=== PATIENT | female | born 1955 | race Two or more races ===

== ENCOUNTER 2019-08-01 11:44 | Inpatient (IN) | payer MEDICARE, MEDICAID ==
[~2019-08-01] VITALS: Ht 175.3 cm; Wt 60.8 kg
[~2019-08-01 11:44] MED LIST: CALC-906 PO
[2019-08-01 12:39] LABS: BASOPHILS % 1.2 % (0.0-2.0); EOSINOPHILS % 3.1 % (0.0-5.0); HEMATOCRIT. 21.8 % (36.0-48.0); HEMOGLOBIN. 7.7 g/dL (12.0-16.0); MEAN CORPUSCULAR HEMOGLOBIN 31.6 pg (28.0-32.0); MEAN CORPUSCULAR VOLUME 89.6 fL (81.0-99.0); MEAN PLATELET VOLUME 9.6 fl (7.4-10.4); MONOCYTES % 10.5 % (2.0-8.0); NEUTROPHILS % 68.2 % (40.0-76.0); PLATELET 232 x1000/uL (130-400); RED BLOOD CELL COUNT 2.44 mill/uL (4.2-5.4); RED CELL DISTRIBUTION WIDTH 18.6 % (11.6-14.6)
[2019-08-01 12:47] LABS: CHLORIDE 96 mEq/L (98-107)
[2019-08-01 12:48] LABS: PROTHROMBIN TIME 10.9 sec (9.6-11.0)
[2019-08-01 12:58] LABS: CLARITY URINE CLEAR (CLEAR); COLOR URINE YELLOW (YELLOW); KETONES URINE NEGATIVE (NEGATIVE); LEUKOCYTE ESTERASE URINE 1+ (NEGATIVE); NITRITE URINE NEGATIVE (NEGATIVE); OCCULT BLOOD URINE NEGATIVE (NEGATIVE); PH URINE 5.5 (4.5-8.0); PROTEIN URINE TRACE (NEGATIVE); SPECIFIC GRAVITY URINE 1.012 (1.005-1.030); UROBILINOGEN URINE 0.2 E.U./dL (0.2-1.0)
[2019-08-01] MEDS ORDERED: VANCOMYCIN 1 G PREMIX 200 ML IV SCH (14:45)
[2019-08-01 17:30] VITALS: BP 112/58
[2019-08-01] MEDS ORDERED: HYDROCODONE/ACETAMINOPHEN 10/325MG TABLET PO PRN (17:30)
[2019-08-01] MEDS ORDERED: GUAIFENESIN 200MG/10ML SUGAR FREE UDC PO PRN (17:30)
[2019-08-01] MEDS ORDERED: ENOXAPARIN 40MG/0.4ML SYR SUBCUT SCH (17:30)
[2019-08-01] MEDS ORDERED: ACETAMINOPHEN 325MG TABLET PO PRN (17:30)
[2019-08-01] MEDS ORDERED: IPRATROPIUM/ALBUTEROL 0.5-3(2.5)MG/3ML NEB HHN PRN (17:30)
[2019-08-01] MEDS ORDERED: MAGNESIUM/ALUMINUM HYDROXIDE/SIMETHICONE 30ML UDC PO PRN (17:30)
[2019-08-01] MEDS ORDERED: CLONIDINE 0.1MG TABLET PO PRN (17:30)
[2019-08-01] MEDS ORDERED: HYDRALAZINE 20MG/ML VIAL IV PRN (17:30)
[2019-08-01] MEDS ORDERED: LORAZEPAM 2MG/ML CPJ IV PRN (17:30)
[2019-08-01] MEDS ORDERED: ONDANSETRON HCL 4MG/2ML INJ IV PRN (17:30)
[2019-08-01] MEDS ORDERED: PIPERACILLIN/TAZ 3.375G PREMIX 50 ML IV SCH (17:30)
[2019-08-01] MEDS ORDERED: PIPERACILLIN/TAZOBACTAM 2.25 G in DEXTROSE 5% WATER 50 ML IV SCH (18:00)
[2019-08-01 20:00] VITALS: BP 101/46
[2019-08-01] MEDS: PIPERACILLIN/TAZOBACTAM 2.25 G in DEXTROSE 5% WATER 50 ML IV SCH (20:27)
[2019-08-01] MEDS: MORPHINE SULFATE 2 MG/ML CPJ (NOT FOR IM USE) IV PRN (21:05)
[2019-08-01] MEDS: SODIUM CHLORIDE 0.9% INJ 3ML FLUSH IVF SCH (22:00)
[2019-08-01] MEDS ORDERED: MIRT7.5T11 MT (23:17)
[2019-08-01] MEDS ORDERED: FOLI1TAB63 MT (23:17)
[2019-08-01] MEDS ORDERED: ATROV3 ORI (23:17)
[2019-08-01] MEDS ORDERED: ONDA4TAB50 MT (23:17)
[2019-08-01] MEDS ORDERED: METO25TA6 PO (23:17)
[2019-08-01] MEDS ORDERED: FOLI-43 MT (23:17)
[2019-08-01] MEDS ORDERED: MIDO10TA PO (23:17)
[2019-08-01] MEDS ORDERED: TRAM50TA3 MT (23:17)
[2019-08-01] MEDS ORDERED: CEPH-569 MT (23:17)
[2019-08-01] MEDS ORDERED: HYDR-4001 MT (23:17)
[2019-08-01] MEDS ORDERED: LACT10SO6 PO (23:17)
[2019-08-01] MEDS ORDERED: NAPH1POW3 PO (23:17)
[2019-08-01] MEDS ORDERED: CALC667C MT (23:17)
[2019-08-01] MEDS ORDERED: LEVO100T9 PO (23:17)
[2019-08-01] MEDS ORDERED: SPIR25TA6 MT (23:17)
[2019-08-01] MEDS ORDERED: PANT40TA4 MT (23:17)
[2019-08-01 23:47] LABS: CREATINE KINASE 20 IU/L (26-192)
[2019-08-01 23:48] LABS: CREATINE KINASE MB FRACTION < 1.0 ng/mL (0.5-3.6)
[2019-08-02] VITALS: BP 105/54
[2019-08-02 04:00] VITALS: BP_SYST 136; BP_SYST 98; BP_DIAS 54; BP_DIAS 70
[2019-08-02] MEDS: MORPHINE SULFATE 2 MG/ML CPJ (NOT FOR IM USE) IV PRN ×3 (04:48→20:26)
[2019-08-02] MEDS: SODIUM CHLORIDE 0.9% INJ 3ML FLUSH IVF SCH ×3 (06:33→22:10)
[2019-08-02 06:46] LABS: CHLORIDE 96 mEq/L (98-107)
[2019-08-02 06:52] LABS: BASOPHILS % 1.1 % (0.0-2.0); EOSINOPHILS % 4.5 % (0.0-5.0); HEMOGLOBIN. 7.6 g/dL (12.0-16.0); LYMPHOCYTES % 22.6 % (20.0-50.0); MEAN CORPUSCULAR HEMOGLOBIN 30.8 pg (28.0-32.0); MEAN CORPUSCULAR VOLUME 89.2 fL (81.0-99.0); MONOCYTES % 10.6 % (2.0-8.0); NEUTROPHILS % 61.2 % (40.0-76.0); PLATELET 225 x1000/uL (130-400); RED BLOOD CELL COUNT 2.47 mill/uL (4.2-5.4)
[2019-08-02 06:54] LABS: CREATINE KINASE 19 IU/L (26-192)
[2019-08-02 06:57] LABS: CREATINE KINASE MB FRACTION < 1.0 ng/mL (0.5-3.6)
[2019-08-02] MEDS: DIPHENHYDRAMINE 50MG/ML VIAL IV PRN ×3 (07:04→22:10)
[2019-08-02 08:00] VITALS: BP 106/64
[2019-08-02] MEDS: PIPERACILLIN/TAZOBACTAM 2.25 G in DEXTROSE 5% WATER 50 ML IV SCH (08:27)
[2019-08-02] MEDS: ENOXAPARIN 30MG/0.3ML SYR SUBCUT SCH (08:37)
[2019-08-02 10:22] LABS: TOTAL IRON BINDING CAPACITY 249 ug/dL (250-450)
[2019-08-02 12:00] VITALS: BP 94/48
[2019-08-02] MEDS ORDERED: VANCOMYCIN 1 G PREMIX 200 ML IV SCH (12:00)
[2019-08-02] MEDS ORDERED: VANCOMYCIN 500 MG PREMIX 100 ML IV SCH (13:00)
[2019-08-02] MEDS: CEFEPIME 1,000 MG in DEXTROSE 5% WATER 50 ML IV SCH (16:21)
[2019-08-02 20:00] VITALS: BP 107/53
[2019-08-03] VITALS (7 sets, daily range): BP systolic 82–113; BP diastolic 37–61
[2019-08-03] MEDS: SODIUM CHLORIDE 0.9% INJ 3ML FLUSH IVF SCH ×3 (05:34→22:21)
[2019-08-03 08:23] LABS: EOSINOPHILS % 5.2 % (0.0-5.0); HEMATOCRIT. 21.7 % (36.0-48.0); HEMOGLOBIN. 7.3 g/dL (12.0-16.0); LYMPHOCYTES % 25.8 % (20.0-50.0); MEAN CORPUSCULAR HEMOGLOBIN 30.2 pg (28.0-32.0); MEAN CORPUSCULAR VOLUME 89.8 fL (81.0-99.0); MEAN PLATELET VOLUME 10.2 fl (7.4-10.4); MONOCYTES % 11.2 % (2.0-8.0); NEUTROPHILS % 56.8 % (40.0-76.0); PLATELET 234 x1000/uL (130-400); RED BLOOD CELL COUNT 2.41 mill/uL (4.2-5.4); RED CELL DISTRIBUTION WIDTH 19.6 % (11.6-14.6)
[2019-08-03 09:14] LABS: HEPATITIS B SURFACE ANTIGEN NEGATIVE
[2019-08-03] MEDS: SODIUM CHLORIDE 0.45% 1,000 ML IV SCH (13:15)
[2019-08-03] MEDS: DIPHENHYDRAMINE 50MG/ML VIAL IV PRN ×2 (13:52→20:20)
[2019-08-03] MEDS: MORPHINE SULFATE 2 MG/ML CPJ (NOT FOR IM USE) IV PRN ×3 (13:59→23:57)
[2019-08-03] MEDS: CEFEPIME 1,000 MG in DEXTROSE 5% WATER 50 ML IV SCH (16:13)
[2019-08-04 00:32] VITALS: BP 99/72
[2019-08-04] MEDS: DIPHENHYDRAMINE 50MG/ML VIAL IV PRN ×4 (01:40→21:10)
[2019-08-04] MEDS: SODIUM CHLORIDE 0.45% 1,000 ML IV SCH ×2 (01:44→17:31)
[2019-08-04 04:00] VITALS: BP 102/51
[2019-08-04] MEDS: MORPHINE SULFATE 2 MG/ML CPJ (NOT FOR IM USE) IV PRN ×3 (05:07→21:11)
[2019-08-04] MEDS: SODIUM CHLORIDE 0.9% INJ 3ML FLUSH IVF SCH ×3 (05:07→21:10)
[2019-08-04 08:00] VITALS: BP 104/53
[2019-08-04] MEDS: ENOXAPARIN 30MG/0.3ML SYR SUBCUT SCH (09:23)
[2019-08-04 12:03] VITALS: BP 102/47
[2019-08-04] MEDS ORDERED: VANCOMYCIN 500 MG PREMIX 100 ML IV SCH (12:30)
[2019-08-04 16:00] VITALS: BP 93/51
[2019-08-04] MEDS: CEFEPIME 1,000 MG in DEXTROSE 5% WATER 50 ML IV SCH (16:40)
[2019-08-04 20:00] VITALS: BP 102/39
[2019-08-05] VITALS: BP 103/54
[2019-08-05] MEDS: DIPHENHYDRAMINE 50MG/ML VIAL IV PRN ×5 (00:49→20:58)
[2019-08-05] MEDS: MORPHINE SULFATE 2 MG/ML CPJ (NOT FOR IM USE) IV PRN ×5 (00:51→20:59)
[2019-08-05 04:00] VITALS: BP 107/58
[2019-08-05] MEDS: SODIUM CHLORIDE 0.9% INJ 3ML FLUSH IVF SCH ×3 (05:12→21:00)
[2019-08-05 06:34] LABS: BASOPHILS % 0.8 % (0.0-2.0); EOSINOPHILS % 6.3 % (0.0-5.0); LYMPHOCYTES % 29.3 % (20.0-50.0); MEAN CORPUSCULAR HEMOGLOBIN 31.6 pg (28.0-32.0); MEAN CORPUSCULAR VOLUME 89.9 fL (81.0-99.0); MONOCYTES % 8.4 % (2.0-8.0); NEUTROPHILS % 55.2 % (40.0-76.0); PLATELET 209 x1000/uL (130-400); RED BLOOD CELL COUNT 2.09 mill/uL (4.2-5.4); RED CELL DISTRIBUTION WIDTH 19.2 % (11.6-14.6)
[2019-08-05 07:13] LABS: HEMATOCRIT. 18.8 % (36.0-48.0); HEMOGLOBIN. 6.6 g/dL (12.0-16.0)
[2019-08-05 08:00] VITALS: BP 162/49
[2019-08-05] MEDS: ENOXAPARIN 30MG/0.3ML SYR SUBCUT SCH (08:12)
[2019-08-05] MEDS ORDERED: SODIUM POLYSTYRENE SULFONATE 15 G/60 ML BOT PO NR (10:00)
[2019-08-05] MEDS: SODIUM CHLORIDE 0.45% 1,000 ML IV SCH (10:28)
[2019-08-05 12:00] VITALS: BP 98/45
[2019-08-05 16:00] VITALS: BP 97/43
[2019-08-05] MEDS: CEFEPIME 1,000 MG in DEXTROSE 5% WATER 50 ML IV SCH (17:31)
[2019-08-05] MEDS: DOCUSATE SODIUM 100MG CAPSULE PO PRN (19:16)
[2019-08-05 20:00] VITALS: BP 111/66
[2019-08-06 00:35] VITALS: BP 102/45
[2019-08-06 04:00] VITALS: BP 116/61
[2019-08-06] MEDS: SODIUM CHLORIDE 0.9% INJ 3ML FLUSH IVF SCH ×3 (05:21→21:10)
[2019-08-06] MEDS: SODIUM CHLORIDE 0.45% 1,000 ML IV SCH (05:21)
[2019-08-06] MEDS: DIPHENHYDRAMINE 50MG/ML VIAL IV PRN ×3 (06:28→21:26)
[2019-08-06] MEDS: MORPHINE SULFATE 2 MG/ML CPJ (NOT FOR IM USE) IV PRN ×3 (06:29→20:30)
[2019-08-06 07:18] LABS: EOSINOPHILS % 5.3 % (0.0-5.0); LYMPHOCYTES % 24.7 % (20.0-50.0); MEAN CORPUSCULAR HEMOGLOBIN 31.1 pg (28.0-32.0); MEAN CORPUSCULAR VOLUME 87.5 fL (81.0-99.0); MEAN PLATELET VOLUME 9.9 fl (7.4-10.4); MONOCYTES % 9.8 % (2.0-8.0); NEUTROPHILS % 59.2 % (40.0-76.0); PLATELET 209 x1000/uL (130-400); RED BLOOD CELL COUNT 1.87 mill/uL (4.2-5.4); RED CELL DISTRIBUTION WIDTH 19.3 % (11.6-14.6)
[2019-08-06 08:00] VITALS: BP 94/59
[2019-08-06 08:18] LABS: HEMOGLOBIN. 5.8 g/dL (12.0-16.0)
[2019-08-06 08:19] LABS: HEMATOCRIT. 16.3 % (36.0-48.0)
[2019-08-06 10:21] LABS: T4 FREE 1.21 ng/dL (0.76-1.46)
[2019-08-06 12:00] VITALS: BP 92/44
[2019-08-06] MEDS ORDERED: VANCOMYCIN 500 MG PREMIX 100 ML IV SCH (14:00)
[2019-08-06 15:56] LABS: CREATINE KINASE 16 IU/L (26-192)
[2019-08-06 16:00] VITALS: BP 103/49
[2019-08-06] MEDS: CEFEPIME 1,000 MG in DEXTROSE 5% WATER 50 ML IV SCH (16:30)
[2019-08-06 20:00] VITALS: BP 105/47
[2019-08-06 23:40] LABS: CREATINE KINASE 16 IU/L (26-192); CREATINE KINASE MB FRACTION < 1.0 ng/mL (0.5-3.6)
[2019-08-07] VITALS (12 sets, daily range): BP systolic 100–124; BP diastolic 39–67
[2019-08-07] MEDS: DIPHENHYDRAMINE 50MG/ML VIAL IV PRN ×4 (04:20→22:50)
[2019-08-07] MEDS: MORPHINE SULFATE 2 MG/ML CPJ (NOT FOR IM USE) IV PRN ×4 (04:20→22:51)
[2019-08-07] MEDS: DOCUSATE SODIUM 100MG CAPSULE PO PRN ×2 (04:20→21:42)
[2019-08-07] MEDS: SODIUM CHLORIDE 0.9% INJ 3ML FLUSH IVF SCH ×3 (04:23→21:09)
[2019-08-07 08:04] LABS: CREATINE KINASE 21 IU/L (26-192)
[2019-08-07 08:07] LABS: CREATINE KINASE MB FRACTION < 1.0 ng/mL (0.5-3.6)
[2019-08-07 10:02] LABS: MEAN CORPUSCULAR HEMOGLOBIN 30.4 pg (28.0-32.0); MEAN CORPUSCULAR VOLUME 86.9 fL (81.0-99.0); PLATELET 203 x1000/uL (130-400); RED BLOOD CELL COUNT 1.75 mill/uL (4.2-5.4); RED CELL DISTRIBUTION WIDTH 19.3 % (11.6-14.6)
[2019-08-07 10:18] LABS: HEMOGLOBIN 5.3 g/dL (12.0-16.0)
[2019-08-07 10:19] LABS: HEMATOCRIT 15.2 % (36.0-48.0)
[2019-08-07 21:08] LABS: HEMATOCRIT 18.3 % (36.0-48.0); HEMOGLOBIN 6.4 g/dL (12.0-16.0)
[2019-08-08] VITALS: BP 109/54
[2019-08-08 04:00] VITALS: BP 96/56
[2019-08-08 08:00] VITALS: BP 104/55
[2019-08-08] MEDS: MORPHINE SULFATE 2 MG/ML CPJ (NOT FOR IM USE) IV PRN ×2 (08:20→19:50)
[2019-08-08] MEDS: DIPHENHYDRAMINE 50MG/ML VIAL IV PRN ×2 (08:20→19:49)
[2019-08-08] MEDS: DOCUSATE SODIUM 100MG CAPSULE PO PRN (09:05)
[2019-08-08 12:00] VITALS: BP 111/66
[2019-08-08 16:00] VITALS: BP 90/52
[2019-08-08] MEDS: SODIUM CHLORIDE 0.9% INJ 3ML FLUSH IVF SCH ×2 (19:10→22:13)
[2019-08-08 20:00] VITALS: BP 110/61
[2019-08-09] VITALS: BP 104/62
[2019-08-09] MEDS: MORPHINE SULFATE 2 MG/ML CPJ (NOT FOR IM USE) IV PRN ×2 (02:04→12:07)
[2019-08-09] MEDS: DIPHENHYDRAMINE 50MG/ML VIAL IV PRN ×2 (02:04→12:06)
[2019-08-09 04:00] VITALS: BP 113/48
[2019-08-09] MEDS: SODIUM CHLORIDE 0.9% INJ 3ML FLUSH IVF SCH ×2 (06:14→13:26)
[2019-08-09 08:00] VITALS: BP 96/48
[2019-08-09 12:00] VITALS: BP 102/69
[2019-08-09] MEDS: DOCUSATE SODIUM 100MG CAPSULE PO PRN (12:06)
[2019-08-09 13:26] LABS: MEAN CORPUSCULAR HEMOGLOBIN 31.9 pg (28.0-32.0); MEAN CORPUSCULAR VOLUME 89.8 fL (81.0-99.0); PLATELET 230 x1000/uL (130-400); RED BLOOD CELL COUNT 1.96 mill/uL (4.2-5.4); RED CELL DISTRIBUTION WIDTH 18.6 % (11.6-14.6)
[2019-08-09 13:32] LABS: HEMATOCRIT 17.6 % (36.0-48.0); HEMOGLOBIN 6.2 g/dL (12.0-16.0)
[2019-08-09 15:01] VITALS: BP 102/69
== END 2019-08-09 16:08 | disposition home health service (06) | DRG 314 ==
LOC: ER 11:44 → EDBEDREQTM 14:17 → EDBEDREQ 14:17 → EDBEDREQTM 14:40 → ENRESERV 16:49 → 6WST 17:37 → 8WST 08-06 19:43
PROVIDERS: ADMIT Internal Medicine; ATTEND Internal Medicine
PROC: 0JPT3XZ Removal of Tunneled Vascular Access Device from Trunk Subcutaneous Tissue and Fascia, Percutaneous Approach (ICD-10-PCS; 2019-08-03)
PROC: 30233N1 Transfusion of Nonautologous Red Blood Cells into Peripheral Vein, Percutaneous Approach (ICD-10-PCS; principal; 2019-08-07)
DX: T82.7XXA Infection and inflammatory reaction due to other cardiac and vascular devices, implants and grafts, initial encounter (principal); N18.6 End stage renal disease; I13.2 Hypertensive heart and chronic kidney disease with heart failure and with stage 5 chronic kidney disease, or end stage renal disease; E87.1 Hypo-osmolality and hyponatremia; N17.9 Acute kidney failure, unspecified; I42.9 Cardiomyopathy, unspecified; Z99.2 Dependence on renal dialysis; E03.9 Hypothyroidism, unspecified; I50.9 Heart failure, unspecified; D57.1 Sickle-cell disease without crisis; Y83.8 Other surgical procedures as the cause of abnormal reaction of the patient, or of later complication, without mention of misadventure at the time of the procedure; E78.00 Pure hypercholesterolemia, unspecified; F32.9 Major depressive disorder, single episode, unspecified; I48.91 Unspecified atrial fibrillation; K76.9 Liver disease, unspecified; I27.20 Pulmonary hypertension, unspecified; D64.9 Anemia, unspecified; Z79.01 Long term (current) use of anticoagulants; Z91.19 Patient's noncompliance with other medical treatment and regimen; Y92.89 Other specified places as the place of occurrence of the external cause
CPT/HCPCS: 36415; 36589; 71045; 80048; 80053; 80061; 80202; 81003; 82550; 82553; 82575; 83036; 83540; 83550; 83605; 83735; 83880; 84132; 84145; 84439; 84443; 84484; 85014; 85018; 85025; 85027; 85379; 86803; 86850; 86900; 86920; 87070; 87340; 93005; 93306; 93971; 97161; 99285; J0692; J1200; J1650; J2270; J2543; J3370; J7060; P9016